=== PATIENT | female | born 1975 | race Caucasian/White ===

== ENCOUNTER 2017-05-12 11:15 | Emergency (ER) | payer MEDICARE, SELFPAY ==
[2017-05-12 12:55] VITALS: BP 159/89; PULSE 102; RESP 20; TEMP 36.6; O2SAT 100; BMI 29.2
--- NOTE | 2017-05-12 13:55 | HMH.EDUTC ---
[facility] [place]errals: Coco Rome PA [Primary Care Provider] - Medical Decision Making Vital Signs: 05/12/17 12:55 Temperature 97.8 F Temperature Source Temporal Artery Scan Pulse Rate [Right Brachial] 102 H Respiratory Rate 20 Blood Pressure [Right Arm] 159/89 Blood Pressure Mean [Right Arm] 112 Blood Pressure Source [Right Arm] Automatic Cuff Blood Pressure Position [Right Arm] Sitting 02 Sat by Pulse Oximetry 100 Oxygen Delivery Method Room Air [facility] [place] - General Stated complaint: leg pain lighheaded Time Seen by Provider: 05/12/17 13:55 Mode of Arrival: Family Vehicle Source of Information: Patient Limitations: No Limitations Description of Symptoms (Recalled from Triage Doc. by RN): PT STATES HER WHOLE RIGHT LEG IS HURTING. PT HAS HX OF STENTS IN HER LEGS. PT DENIES BACK PAIN OR INJURY. HEENT Symptoms (Recalled from RN notes): No Resp Symptoms (Recalled from RN notes): No Skin Symptoms (Recalled from RN notes): No MS Symptoms (Recalled from RN notes): Yes (RIGHT LEG PAIN) Functional Status (Recalled from RN notes): NA - Related Data Home Medications Medication Instructions Recorded Confirmed Aspirin [Aspirin 81mg EC Tab] 81 mg PO DAILY 05/12/17 05/12/17 Gabapentin [Gabapentin 300mg Cap] 600 mg PO DAILY 05/12/17 05/12/17 Omeprazole [Omeprazole 40mg 40 mg PO DAILY 05/12/17 05/12/17 Capsule] PARoxetine HCl [Paxil 20mg Tablet] 20 mg PO DAILY 05/12/17 05/12/17 Prasugrel HCl [Effient 10mg tablet] 10 mg PO DAILY 05/12/17 05/12/17 Pravastatin Sodium [Pravachol 40mg 40 mg PO DAILY 05/12/17 05/12/17 Tablet] Tizanidine HCl [Zanaflex 4mg 4 mg PO DAILY 05/12/17 05/12/17 tablet] dilTIAZem HCl [Diltiazem ER] 240 mg PO DAILY 05/12/17 05/12/17 Allergies Allergy/AdvReac Type Severity Reaction Status Date / Time clopidogrel Allergy Unknown I-ITCHING/ Verified 05/12/17 11:54 RASH - Worker's Comp Is this a Worker's Comp case?: No Is this an [facility] Worker's Comp?: No Is this a [place] Worker's Comp?: No [facility] History - *Social History Smoking Status: Current every day smoker Tobacco Type: cigarettes Alcohol Intake: never - Psychiatric History Expresses thoughts of harming self/others: None Suicide Plan Description: No Plan
--- NOTE | 2017-05-12 14:00 | ED_ITS ---
[facility] [place] Referrals: Coco Rome PA [Primary Care Provider] - Medical Decision Making Vital Signs: 05/12/17 12:55 Temperature 97.8 F Temperature Source Temporal Artery Scan Pulse Rate [Right Brachial] 102 H Respiratory Rate 20 Blood Pressure [Right Arm] 159/89 Blood Pressure Mean [Right Arm] 112 Blood Pressure Source [Right Arm] Automatic Cuff Blood Pressure Position [Right Arm] Sitting 02 Sat by Pulse Oximetry 100 Oxygen Delivery Method Room Air [facility] [place] HPI - General Stated complaint: leg pain lighheaded Time Seen by Provider: 05/12/17 13:55 Mode of Arrival: Family Vehicle Source of Information: Patient Limitations: No Limitations Description of Symptoms (Recalled from Triage Doc. by RN): PT STATES HER WHOLE RIGHT LEG IS HURTING. PT HAS HX OF STENTS IN HER LEGS. PT DENIES BACK PAIN OR INJURY. HEENT Symptoms (Recalled from RN notes): No Resp Symptoms (Recalled from RN notes): No Skin Symptoms (Recalled from RN notes): No MS Symptoms (Recalled from RN notes): Yes (RIGHT LEG PAIN) Functional Status (Recalled from RN notes): NA - Related Data Home Medications Medication Instructions Recorded Confirmed Aspirin [Aspirin 81mg EC Tab] 81 mg PO DAILY 05/12/17 05/12/17 Gabapentin [Gabapentin 300mg Cap] 600 mg PO DAILY 05/12/17 05/12/17 Omeprazole [Omeprazole 40mg 40 mg PO DAILY 05/12/17 05/12/17 Capsule] PARoxetine HCl [Paxil 20mg Tablet] 20 mg PO DAILY 05/12/17 05/12/17 Prasugrel HCl [Effient 10mg tablet] 10 mg PO DAILY 05/12/17 05/12/17 Pravastatin Sodium [Pravachol 40mg 40 mg PO DAILY 05/12/17 05/12/17 Tablet] Tizanidine HCl [Zanaflex 4mg 4 mg PO DAILY 05/12/17 05/12/17 tablet] dilTIAZem HCl [Diltiazem ER] 240 mg PO DAILY 05/12/17 05/12/17 Allergies Allergy/AdvReac Type Severity Reaction Status Date / Time clopidogrel Allergy Unknown I-ITCHING/ Verified 05/12/17 11:54 RASH - Worker's Comp Is this a Worker's Comp case?: No Is this an [facility] Worker's Comp?: No Is this a [place] Worker's Comp?: No [facility] History - *Social History Smoking Status: Current every day smoker Tobacco Type: cigarettes Alcohol Intake: never - Psychiatric History Expresses thoughts of harming self/others: None Suicide Plan Description: No Plan
--- NOTE | 2017-05-12 15:39 | PC.NURSE ---
Pt came in to clinic c/o bilateral chronic leg pain and a syncopal episode 2 months ago. PCP, Coco. Has been off all medications for months and hasn't seen PCP since fall 2016 due to $58 bill in collections. I doubt they will see me . Came to hospital to see Ani, financial counselor, in hopes to qualify for medicaid. Already saw Ani and does qualify for medicaid but will not go into effect until around June. Pt reports since I was already here, I just came in because this is horrible. No acute symptoms. CP intermittently x years, denies CP for months. SOA intermittently, denies SOA x months. Denies LE edema, cold skin, wounds to feet or legs. Hx of femoral artery stenosis. Pain worse since stopping all medications (omeprazole, paxil, asa, effient, pravastatin, gabapenten, diltiziam, xanaflex). Pain described as muscle spasms, worse with walking and worse at night. Improves at night when walking. Was on gabapentin when could afford medication. On exam today, no LE edema. BLE warm, brisk cap refill, no sensory deficit, 1+ gurpreet pedal pulses. Without acute symptoms, it is not clear what the patient expects of a visit today. Called and spoke to PCP, Coco. We rvwd PMHx, current complaints, current exam. Coco reports a hx of chronic leg pain. Rvwd last cardiology report and was good . Coco has no suggestions for today's visits other then patient needs to follow up with primary care. Discussed collections situation. I spoke to Nany in Coco's office. She reports there are plenty of minimal options to get the patient in and seen so to make pt aware to call her. Spoke to LARA Walker about the patient's Hx, complaints today and exam. Without an acute complaint or acute finding, he too doesn't know what we can offer the patient today. Discussed all this with patient. Aware we are more then happy to see her and evaluate her fully but potentially, there is nothing we can do here other then get her back on her medications (which she reports she can't afford until medicaid kicks in next month). She rather go talk to nany and try to get in with PCP due to cost. Pt left without being seen and evaluated fully.
== END 2017-05-12 15:06 | disposition left against medical advice (07) ==
PROVIDERS: Emergency Provider Nurse Practitioner Family; Family Provider Emergency Medicine; PCP Physician Assistant
DX: Z53.29 Procedure and treatment not carried out because of patient's decision for other reasons (principal)
CPT/HCPCS: 99201

== ENCOUNTER → 2017-05-19 11:28 | Outpatient (CLI) | payer MEDICARE, SELFPAY ==
--- NOTE | 2017-05-19 11:43 | MR_ITS ---
MR lumbar spine wo con HISTORY: Low back pain with bilateral leg and hip pain and numbness and tingling with leg cramping ORDERING PHYSICIAN: Kendell Magaña MD PATIENT AGE: 41 years COMPARISON: 11/07/2014 TECHNIQUE: Standard multiplanar multiecho sequences are performed without contrast. 3-D MIP and myelographic images are also rendered and reviewed FINDINGS: There is normal alignment. Spinal cord ends at the L1 level. T11-L5 levels show mild disc desiccation with minimal endplate irregularity without compressive changes with minimal concentric bulging of the disc at L2-L3, L3-L4, L4-5. Facet and ligamentum flavum hypertrophy is present at L3-L4 and L4-L5. There is mild left-sided foraminal narrowing at L4-L5. Minimal bulging disc is present at L5-S1 with minimal central disc protrusion without neural impingement. There is mild facet hypertrophy with mild bilateral foraminal narrowing. IMPRESSION: 1. Mild multilevel lumbar spondylosis as described above with mild degenerative disc disease and minimal bulging disc. Please see above for detailed description. 2. Minimal central disc protrusion at L5-S1 which is developed in the interval.
== END ==
PROVIDERS: PCP Emergency Medicine; Visit Provider Emergency Medicine
DX: R20.0 Anesthesia of skin (principal); R32 Unspecified urinary incontinence
CPT/HCPCS: 72148; 76376

== ENCOUNTER → 2017-07-19 08:54 | Outpatient (CLI) | payer MEDICARE, MEDICAID, SELFPAY ==
--- NOTE | 2017-07-19 08:55 | US_ITS ---
US abd. aorta screening COMPARISON: Lower spine 07/31/2014 HISTORY: History of peripheral vascular disease TECHNIQUE: Ultrasound evaluation of the aorta FINDINGS: The upper abdominal aorta is normal caliber with minimal arterial sclerotic plaque noted. The infrarenal aorta is normal caliber as well. There are bilateral common iliac stents noted. These were seen on the lumbar spine films in July 2014. IMPRESSION: Bilateral aortic bifurcation stents, no evidence of aortic aneurysm
== END ==
PROVIDERS: Family Provider Emergency Medicine; PCP Emergency Medicine; Visit Provider Physician Assistant
DX: Z13.6 Encounter for screening for cardiovascular disorders (principal)
CPT/HCPCS: 76705

== ENCOUNTER → 2017-08-01 09:59 | Outpatient (REF) | payer MEDICARE, MEDICAID, SELFPAY ==
[2017-08-01 13:59] LABS: Basophils # 0.1 K/mm3 (0-0.2); Basophils % 0.8 % (0.1-2.0); Eosinophils # 0.4 K/mm3 (0.0-0.4); Eosinophils % 4.6 % (0.1-12.0); Hematocrit 42.5 % (37.0-47.0); Hemoglobin 12.8 g/dL (12.2-16.2); Lymphocytes # 2.7 K/mm3 (0.7-4.5); Lymphocytes % 29.6 K/mm3 (10-50); Mean Corpuscular HGB Conc 30.2 g/dL (31.8-35.4); Mean Corpuscular Hemoglobin 27.6 pg (27.0-31.2); Mean Corpuscular Volume 91.3 fl (81-99); Mean Platelet Volume 7.7 fl (7.4-10.4); Monocytes # 0.6 K/mm3 (0.1-1.0); Monocytes % 6.3 % (1.7-9.3); Neutrophils # 5.3 K/mm3 (1.8-7.8); Neutrophils % 58.7 % (37.0-80.0); Platelet Count 423 K/mm3 (142-424); Red Blood Count 4.65 M/mm3 (4.20-5.40); Red Cell Distribution Width 15.1 % (11.5-17.5)
[2017-08-01 15:09] LABS: Alanine Aminotransferase 19 U/L (12-78); Albumin Level 3.9 gm/dL (3.4-5.0); Alkaline Phosphatase 149 U/L (46-116); Anion Gap 14.6 mEq/L (5-15); Aspartate Amino Transferase 16 U/L (15-37); Bilirubin,Total 0.2 mg/dL (0.2-1.0); Blood Urea Nitrogen 6 mg/dL (7-18); Calcium 9.6 mg/dL (8.5-10.1); Carbon Dioxide 27 mmol/L (21.0-32.0); Chloride 103 mmol/L (98-107); Chol/HDL Ratio 4.3 (1-3.5); Cholesterol 187 mg/dL (140-200); Creatinine,Serum 0.64 mg/dL (0.55-1.02); Estimated Glomerular Filt Rate 103 ml/min (>60); GFR (African American) 124 ML/MIN (>60); Globulin 3.8 gm/dl (1.3-3.2); Glucose 88 mg/dL (74-106); HDL Cholesterol 44 mg/dL (29-89); LDL Cholesterol 127 mg/dL (0-130); Potassium 4.6 mmoL/L (3.5-5.1); Sodium 140 mmol/L (136-145); T4 (Thyroxine) 8.3 ug/dl (4.7-13.3); Thyroid Stimulating Hormone 1.11 uIU/ml (0.358-3.740); Total Protein,Serum 7.7 gm/dL (6.4-8.2); Triglycerides 81 mg/dL (30-200); VLDL Cholesterol 16 mg/dL (0-40)
[2017-08-03 06:45] LABS: Vitamin D 25 Hydroxy 19.6 ng/mL (30.0-100.0)
== END ==
LOC: LAB 09:59
PROVIDERS: Visit Provider Physician Assistant
DX: G25.81 Restless legs syndrome (principal); F32.9 Major depressive disorder, single episode, unspecified; Z13.6 Encounter for screening for cardiovascular disorders
CPT/HCPCS: 80053; 80061; 82652; 84436; 84443; 85025

== ENCOUNTER → 2017-11-08 08:48 | Outpatient (CLI) | payer MEDICARE, MEDICAID, SELFPAY ==
--- NOTE | 2017-11-08 08:50 | MM_ITS ---
MM Dig screening mamm BI w/CAD CAD Screening COMPARISON: None, this is baseline INDICATION: There is no personal or family history of breast cancer TECHNIQUE: Standard CC and MLO images were obtained. R2 CAD reviewed. FINDINGS: Moderate diffuse fibroglandular densities are seen in both breast slightly more prominent upper outer quadrant right breast than left. There are couple benign-appearing calcifications in each breast. There is no suspicious lesion in either breast and there are no suspicious microcalcifications. IMPRESSION: Moderate diffuse breast density with no suspicious lesion seen BI-RADS Category: 2 Benign Finding(s) RECOMMENDED FOLLOW-UP: 1YR - 1 YEAR FOLLOW-UP (A letter has been sent to the patient regarding results of the study.)
== END ==
PROVIDERS: Family Provider Emergency Medicine; PCP Emergency Medicine; Visit Provider Physician Assistant
DX: Z12.31 Encounter for screening mammogram for malignant neoplasm of breast (principal)
CPT/HCPCS: 77067

== ENCOUNTER → 2018-02-14 18:09 | Outpatient (CLI) | payer MEDICARE, MEDICAID, SELFPAY ==
[2018-02-14 19:03] LABS: Amphetamine/Metha Screen,Urine Negative ng/mL (<1000); Barbiturates Screen,Urine Negative ng/mL (<200); Benzodiazepines Screen,Urine Negative ng/mL (<200); Cannabinoid Screen,Urine Positive ng/mL (<50); Cocaine Screen,Urine Negative ng/mL (<300); Methadone Screen,Urine Negative ng/mL (<300); Opiate Screen,Urine Positive ng/mL (<300); Phencyclidine Screen,Urine Negative ng/mL (<25)
== END ==
PROVIDERS: Visit Provider Physician Assistant
DX: M47.816 Spondylosis without myelopathy or radiculopathy, lumbar region (principal)
CPT/HCPCS: 80305

== ENCOUNTER → 2018-03-07 20:45 | Outpatient (CLI) | payer MEDICARE, MEDICAID, SELFPAY ==
[2018-03-07 21:55] LABS: Anion Gap 16.9 mEq/L (5-15); Blood Urea Nitrogen 11 mg/dL (7-18); Calcium 9.1 mg/dL (8.5-10.1); Carbon Dioxide 26 mmol/L (21.0-32.0); Chloride 101 mmol/L (98-107); Creatinine,Serum 0.59 mg/dL (0.55-1.02); Estimated Glomerular Filt Rate 113 ml/min (>60); GFR (African American) 137 ML/MIN (>60); Glucose 76 mg/dL (74-106); Magnesium 1.7 mg/dL (1.4-2.2); Potassium 3.9 mmoL/L (3.5-5.1); Sodium 140 mmol/L (136-145)
== END ==
PROVIDERS: Visit Provider Physician Assistant
DX: F32.9 Major depressive disorder, single episode, unspecified (principal)
CPT/HCPCS: 80048; 83735

== ENCOUNTER → 2018-03-21 10:17 | Outpatient (CLI) | payer MEDICARE, MEDICAID, SELFPAY ==
--- NOTE | 2018-03-21 10:21 | CT_ITS ---
CT angio LE BI INDICATION: Bilateral leg pain with coldness in toes and upper legs with bilateral aortic bifurcation stents ITS.REASON: Femoral artery stenosis, B leg pain, diminished pu ORDERING PHYSICIAN: WHITNEY Story PATIENT AGE: 42 years COMPARISON: None TECHNIQUE: Axial images are obtained following the intravenous administration 120 mL of Isovue-370 contrast. Sagittal and coronal reformatted images are reviewed as well. All CT scans at the facility use one or more dose reduction, viz: automated exposure control, ma/kV adjustment per patient size (including targeted exams where dose is matched to indication, i.e. head), or iterative reconstruction technique. FINDINGS: Angiographic findings: Superior mesenteric and celiac arteries have an unremarkable appearance. Atheromatous changes involve the abdominal aorta beginning at the level of the renal arteries. There is occlusion of the abdominal aorta 5.3 cm below the level of the renal arteries.. The bilateral iliac artery stents are occluded. There is reconstitution of the distal aspect of the left common iliac artery. There is reconstitution of the proximal aspect of the right external iliac artery. Collateral vessels are present within the mesentery is an apparent lumbar region. The inferior epigastric arteries provide collateral blood flow to the lower extremities. The right superficial femoral artery has an unremarkable appearance as does the right popliteal artery. Trifurcation vessels are patent and there is 3 vessel runoff to the ankle on the right. The left common femoral and superficial femoral artery and popliteal artery are unremarkable with patent trifurcation vessels with three-vessel runoff to the left ankle. Nonangiographic findings: Prior cholecystectomy. The spleen, liver, adrenal glands, and pancreas have an unremarkable appearance. The kidneys have an unremarkable appearance as well. No intestinal obstruction or free air. No pelvic or abdominal mass or abnormal fluid collection. No acute bony anomalies. IMPRESSION: 1. Occlusion of the lower aspect of the abdominal aorta with occluded bilateral proximal common iliac stents. Moderate atheromatous changes involving the aorta below the level of the renal arteries with up to 50% stenosis. 2. Reconstitution of the external iliacs and common femorals with no significant stenosis within the bilateral lower extremities and runoff vessels.
== END ==
PROVIDERS: PCP Physician Assistant; Visit Provider Physician Assistant
DX: I70.213 Atherosclerosis of native arteries of extremities with intermittent claudication, bilateral legs (principal)
CPT/HCPCS: 73701; Q9967

== ENCOUNTER → 2018-05-22 13:53 | Outpatient (CLI) | payer MEDICARE, MEDICAID, SELFPAY ==
[2018-05-22 15:34] LABS: Amphetamine/Metha Screen,Urine Negative ng/mL (<1000); Barbiturates Screen,Urine Negative ng/mL (<200); Benzodiazepines Screen,Urine Negative ng/mL (<200); Cannabinoid Screen,Urine Positive ng/mL (<50); Cocaine Screen,Urine Negative ng/mL (<300); Methadone Screen,Urine Negative ng/mL (<300); Opiate Screen,Urine Positive ng/mL (<300); Phencyclidine Screen,Urine Negative ng/mL (<25)
== END ==
PROVIDERS: Visit Provider Physician Assistant
DX: M47.816 Spondylosis without myelopathy or radiculopathy, lumbar region (principal)
CPT/HCPCS: 80305

== ENCOUNTER → 2018-07-26 14:04 | Outpatient (CLI) | payer MEDICARE, MEDICAID, SELFPAY ==
[2018-07-26 14:56] LABS: Amphetamine/Metha Screen,Urine Negative ng/mL (<1000); Barbiturates Screen,Urine Negative ng/mL (<200); Benzodiazepines Screen,Urine Negative ng/mL (<200); Cannabinoid Screen,Urine Positive ng/mL (<50); Cocaine Screen,Urine Negative ng/mL (<300); Methadone Screen,Urine Negative ng/mL (<300); Opiate Screen,Urine Positive ng/mL (<300); Phencyclidine Screen,Urine Negative ng/mL (<25)
== END ==
PROVIDERS: Visit Provider Physician Assistant
DX: M47.816 Spondylosis without myelopathy or radiculopathy, lumbar region (principal)
CPT/HCPCS: 80305

== ENCOUNTER → 2018-10-13 15:10 | Outpatient (CLI) | payer MEDICARE, MEDICAID, SELFPAY ==
--- NOTE | 2018-10-13 15:13 | CA_ITS ---
PROCEDURE: 2-D M-mode and color Doppler study INDICATIONS FOR THE TEST: Chest pain COPD Heart Murmur Tobacco SmokingX Palpitations Fatigue Syncope EdemaX HypertensionXDiabetes MellitusX Rheumatic Fever SOBXDOE Obesity HyperlipidemiaX Family History HD Additional History X PATIENT INFORMATION HEIGHT: 62 WEIGHT:162 GENDER: Female B/P:132/82 2-D/M-MODE INTERPRETATION: 2-D MEASUREMENTS OBSERVED VALUES IN CMS Right Ventricular Dimension (RVDd) 2.0 Interventricular Septum (Thickness)(IVsd) .8 Left Ventricular Internal Dimensions(LVIDd) 4.7 Left Ventricular Posterior Wall (Thickness)(LVPWd) .9 Aortic Root 2.9 Aortic Cusp Separation 1.8 Left Atrial Dimensions (LAD) 3.1 2D 1. Left atrium is qualitatively mildly enlarged, left ventricle is normal size, mild concentric left ventricular hypertrophy, visually estimated ejection fraction 55% with no regional wall motion abnormality. 2. The right atrium is mildly enlarged, right ventricle is normal size and contractility. 3. The aortic valve is minimally thickened and fibrosed. 4. The mitral and tricuspid valvular grossly normal. 5. The pulmonic valve is poorly visualized. 6. No significant pericardial effusion noted. DOPPLER INTERROGATION: Doppler interrogation of the aortic, mitral and tricuspid valvular presence of mild mitral and tricuspid regurgitation, tricuspid regurgitation jet velocity is inadequate for calculation of the right ventricular systolic pressure, diastolic parameters are inconclusive. CONCLUSION: 1. Mild biatrial enlargement, normal left ventricular size, mild concentric left ventricular hypertrophy, visually estimated ejection fraction 55% with no regional wall motion abnormality, diastolic parameters are inconclusive. 2. Mild mitral and tricuspid regurgitation 3. No significant pericardial effusion noted.
--- NOTE | 2018-10-13 15:40 | XR_ITS ---
XR chest 2V HISTORY: ITS.REASON: Dyspnea, edema ORDERING PHYSICIAN: WHITNEY Larios PATIENT AGE: 43 years COMPARISON: 04/30/2013. FINDINGS: The cardiomediastinal silhouette and pulmonary vascularity are within normal limits. The lungs are clear without infiltrates, suspicious nodules, or pleural effusions. No acute bony abnormalities. IMPRESSION: Negative chest, no acute finding
== END ==
PROVIDERS: PCP Physician Assistant; Visit Provider Physician Assistant
DX: R06.00 Dyspnea, unspecified (principal); R60.0 Localized edema
CPT/HCPCS: 71046; 93306

== ENCOUNTER → 2018-11-29 13:57 | Outpatient (CLI) | payer MEDICARE, MEDICAID, SELFPAY ==
[2018-11-29 15:31] LABS: Amphetamine/Metha Screen,Urine Negative ng/mL (<1000); Barbiturates Screen,Urine Negative ng/mL (<200); Benzodiazepines Screen,Urine Negative ng/mL (<200); Cannabinoid Screen,Urine Positive ng/mL (<50); Cocaine Screen,Urine Negative ng/mL (<300); Methadone Screen,Urine Negative ng/mL (<300); Opiate Screen,Urine Positive ng/mL (<300); Phencyclidine Screen,Urine Negative ng/mL (<25)
== END ==
PROVIDERS: Visit Provider Physician Assistant
DX: M47.816 Spondylosis without myelopathy or radiculopathy, lumbar region (principal)
CPT/HCPCS: 80305

== ENCOUNTER → 2021-08-05 09:35 | Outpatient (CLI) | payer MEDICARE, MEDICAID, SELFPAY ==
[2021-08-05 18:28] LABS: Basophils # 0.1 K/mm3 (0-0.2); Basophils % 0.8 % (0.1-2.0); Eosinophils # 0.3 K/mm3 (0.0-0.4); Eosinophils % 4.1 % (0.1-12.0); Hematocrit 36.9 % (37.0-47.0); Hemoglobin 11.4 g/dL (12.2-16.2); Lymphocytes # 2.5 K/mm3 (0.7-4.5); Lymphocytes % 31.7 % (10-50); Mean Corpuscular HGB Conc 30.9 g/dL (31.8-35.4); Mean Corpuscular Hemoglobin 27.7 pg (27.0-31.2); Mean Corpuscular Volume 89.7 fl (81-99); Mean Platelet Volume 8.8 fl (7.4-10.4); Monocytes # 0.4 K/mm3 (0.1-1.0); Monocytes % 5.6 % (1.7-9.3); Neutrophils # 4.5 K/mm3 (1.8-7.8); Neutrophils % 57.8 % (37.0-80.0); Platelet Count 390 K/mm3 (142-424); Red Blood Count 4.12 M/mm3 (4.20-5.40); Red Cell Distribution Width 18.2 % (11.5-17.5); White Blood Count 7.8 K/mm3 (4.8-10.8)
[2021-08-05 19:10] LABS: Alanine Aminotransferase 14 U/L (12-78); Albumin Level 4.1 g/dl (3.5-5.0); Albumin/Globulin Ratio 1.4 (1.1-1.8); Alkaline Phosphatase 105 U/L (38-126); Anion Gap 9.1 mEq/L (5-15); Aspartate Amino Transferase 21 U/L (14-36); Bilirubin,Total 0.3 mg/dl (0.2-1.3); Blood Urea Nitrogen 7 mg/dl (7-17); Carbon Dioxide 29 mmol/L (22.0-30.0); Chloride 104 mmol/L (98-107); Chol/HDL Ratio 5.6 (1-3.5); Cholesterol 223 mg/dl (140-200); Estimated Glomerular Filt Rate 134 ml/min (>60); GFR (African American) 162 ML/MIN (>60); Glucose 86 mg/dl (74-100); HDL Cholesterol 40 mg/dl (40-60); Potassium 4.1 mmoL/L (3.5-5.1); Sodium 138 mmol/L (136-145); Total Protein,Serum 7.1 g/dl (6.3-8.2); Triglycerides 117 mg/dl (30-150); VLDL Cholesterol 23 mg/dL (0-40)
[2021-08-05 19:21] LABS: Direct LDL Cholesterol 147.43 mg/dL (100-129)
[2021-08-05 19:27] LABS: 25-OH Vitamin D, Total 17.3 ng/mL (30-100)
[2021-08-05 19:41] LABS: Thyroid Stimulating Hormone 0.86 uIU/mL (0.465-4.68)
[2021-08-05 20:00] LABS: Vitamin B12 564 pg/mL (239-931)
== END ==
PROVIDERS: Visit Provider Physician Assistant
DX: I70.203 Unspecified atherosclerosis of native arteries of extremities, bilateral legs (principal); R53.83 Other fatigue; Z72.0 Tobacco use; R52 Pain, unspecified; E55.9 Vitamin D deficiency, unspecified
CPT/HCPCS: 80053; 80061; 82306; 82607; 84443; 85025

== ENCOUNTER → 2022-03-08 09:31 | Outpatient (CLI) | payer MEDICARE, MEDICAID, SELFPAY ==
[2022-03-08 20:15] LABS: Amphetamine/Metha Screen,Urine Negative ng/ml (<1000); Barbiturates Screen,Urine Negative ng/ml (<200)
[2022-03-08 20:16] LABS: Benzodiazepines Screen,Urine Negative ng/ml (<200)
[2022-03-08 20:17] LABS: Cannabinoid Screen,Urine Positive ng/ml (<50); Cocaine Screen,Urine Negative ng/ml (<300)
[2022-03-08 20:18] LABS: Methadone Screen,Urine Negative ng/ml (<300); Opiate Screen,Urine Positive ng/ml (<300)
[2022-03-08 20:19] LABS: Phencyclidine Screen,Urine Negative ng/ml (<25)
== END ==
PROVIDERS: PCP Physician Assistant; Visit Provider Physician Assistant
DX: M47.816 Spondylosis without myelopathy or radiculopathy, lumbar region (principal)
CPT/HCPCS: 80305

== ENCOUNTER 2022-03-09 17:00 | Outpatient (RCR) | payer MEDICARE, MEDICAID, SELFPAY ==
--- NOTE | 2022-03-03 13:42 | HMH.PTOPEV ---
PT Outpatient Evaluation Rehab PT Outpatient Evaluation Start: 03/03/22 12:57 Freq: Status: Active Protocol: Document 03/03/22 12:58 KRISTY (Rec: 03/03/22 13:41 KRISTY [id number]) E-signed By Alberta Olmedo, PT Outpatient Therapy Subjective History Subjective History Pt is a 46 y/o female that reports insidious onset of chronic low back pain ~3 years ago. Pt reports she has not had imaging and has to do PT to get an MRI approved. Pt reports pain is a dull,ache across the wist line that is worse with prolonged sitting > 30 minutes, bending and housework. Pt denies pain with walking or standing. Pt denies paresthesia, b/b dysfunction or falls. Pt reports she has 7 stents placed with last once placed for her aorta on 01/14/22 at [facility]. She reports she was having leg pain and had stents placed in both femoral arteries with improved leg pain. Pt reports she is taking hydrocodone as needed for back pain which does help. Medical History: High blood pressure, COPD Chief Complaint Pain Symptom Type Ache,Dull Symptoms Relieved By Prescription Meds Symptoms Aggravated By Sitting,Bending/Stooping, Physical Activity Prior Functional Limitations None Current Functional Limitations Lifting,Housework,Sleeping, Sitting,Squatting,Bending/ Stooping Symptom Description Constant but Variable Level of pain today (0-10) 5 Pain scale - at its best (0-10) 1 Pain scale - at its worst (0-10) 10 Lumbopelvic Eval Palapation tenderness bilateral lumbar spinal tenderness Yes paraspinal tenderness Yes: lumbar B buttock tenderness Yes: piriformis & greater trochanter B Lumbar/Sacral Palpation Findings Tenderness Accessory Movement L-spine Vertebrae Accessory Movements Central P/A [place] that Elicit Symptoms L4 bilateral L5 bilateral S1 bilateral Ra
== END 2022-03-09 17:05 | disposition home or self-care (01) ==
LOC: PT 17:00
PROVIDERS: PCP Physician Assistant; Visit Provider Physician Assistant
DX: M47.816 Spondylosis without myelopathy or radiculopathy, lumbar region (principal)
CPT/HCPCS: 97163

== ENCOUNTER → 2022-05-03 13:45 | Outpatient (CLI) | payer MEDICARE, MEDICAID, SELFPAY ==
[2022-05-03 16:36] LABS: Amphetamine/Metha Screen,Urine Negative ng/ml (<1000); Barbiturates Screen,Urine Negative ng/ml (<200)
[2022-05-03 16:37] LABS: Benzodiazepines Screen,Urine Negative ng/ml (<200)
[2022-05-03 16:38] LABS: Cannabinoid Screen,Urine Positive ng/ml (<50); Cocaine Screen,Urine Negative ng/ml (<300)
[2022-05-03 16:39] LABS: Methadone Screen,Urine Negative ng/ml (<300); Opiate Screen,Urine Positive ng/ml (<300)
[2022-05-03 16:41] LABS: Phencyclidine Screen,Urine Negative ng/ml (<25)
== END ==
PROVIDERS: PCP Physician Assistant; Visit Provider Physician Assistant
DX: M47.816 Spondylosis without myelopathy or radiculopathy, lumbar region (principal)
CPT/HCPCS: 80305

== ENCOUNTER → 2022-05-26 11:34 | Outpatient (CLI) | payer MEDICARE, MEDICAID, SELFPAY | PROVIDERS: PCP Physician Assistant; Visit Provider Physician Assistant | DX: G47.33 Obstructive sleep apnea (adult) (pediatric) (principal); G47.00 Insomnia, unspecified; R06.83 Snoring | CPT/HCPCS: G0399 ==

== ENCOUNTER → 2022-06-24 10:54 | Outpatient (CLI) | payer MEDICARE, MEDICAID, SELFPAY ==
--- NOTE | 2022-06-24 10:55 | CT_ITS ---
FINAL REPORT TECHNIQUE: Thin section axial CT images with coronal and sagittal reformats were performed through the neck. This study was performed with techniques to keep radiation doses as low as reasonably achievable (ALARA). Individualized dose reduction techniques using automated exposure control or adjustment of mA and/or kV according to the patient''s size were employed. CLINICAL HISTORY: lymphadenopathy. Swollen bilat lymph nodes x 2 mos, c/o chronic cough. Nonsmoker. FINDINGS: There are multiple, borderline sized bilateral neck lymph nodes as well as mediastinal lymph nodes which are nonspecific. Findings may be reactive or neoplastic. No dominant mass is seen. Salivary glands are normal. Larynx is unremarkable. Thyroid gland is unremarkable. There is no abnormal fluid collection. There are bilateral, pulmonary ground-glass opacities which may represent edema or alveolitis. IMPRESSION: Borderline size mediastinal and neck lymph nodes which may be reactive or neoplastic. Recommend follow-up CT or PET-CT. Bilateral pulmonary ground-glass opacities which may represent edema or alveolitis. Reviewed, Interpreted and Dictated by Carroll Lima III, MD Transcribed by Cora Stauffer Authenticated and [facility]
== END ==
PROVIDERS: PCP Physician Assistant; Visit Provider Physician Assistant
DX: R59.1 Generalized enlarged lymph nodes (principal)
CPT/HCPCS: 70490

== ENCOUNTER 2022-08-02 11:00 | Outpatient (RCR) | payer MEDICARE, MEDICAID, SELFPAY ==
--- NOTE | 2022-06-24 14:40 | HMH.PTOPEV ---
PT Outpatient Evaluation Rehab PT Outpatient Evaluation Start: 06/24/22 14:00 Freq: Status: Active Protocol: Document 06/24/22 14:00 KRISTY (Rec: 06/24/22 14:40 KRISTY [id number]) E-signed By Alberta Olmedo, PT Outpatient Therapy Subjective History Subjective History Pt is a 47 y/o female that reports chronic low back pain for 4-5 years with insidious onset. Pt reports pain is a dull,ache in the center of her back that radiates to both hips. Pt reports pain is worse with prolonged sitting >30 minutes, bending and housework such as sweeping. Pt denies pain with walking or standing. Pt denies paresthesia, b/b dysfunction or falls. Pt attended PT evaluation with this PT 3 months ago although did not followup for treatment . Pt reports she has been performing standing lumbar extensions given as HEP intermittently which help some with pain. Pt reports she takes hydrocodone 3x/day which helps with pain. Pt reports she has 7 stents placed and the last one was placed for her aorta on 01/14/22 at [place]. She reports she was having leg pain and had stents placed in both femoral arteries with improved leg pain. Medical History: High blood pressure, COPD Chief Complaint Pain Symptom Type Ache,Dull Symptoms Relieved By Prescription Meds Symptoms Aggravated By Sitting,Bending/Stooping, Physical Activity Prior Functional Limitations None Current Functional Limitations Lifting,Housework,Sitting, Squatting,Bending/Stooping Symptom Description Constant but Variable Level of pain today (0-10) 2 Pain scale - at its best (0-10) 1 Pain scale - at its worst (0-10) 10 Lumbopelvic Eval Palapation tenderness bilateral lumbar spinal tenderness Yes paraspinal tenderness Yes buttock tenderness Yes: piriformi
--- NOTE | 2022-07-22 15:25 | HMH.RHREAS ---
Rehab Reassessment Rehab OP Re-assessment Start: 07/22/22 13:57 Freq: Status: Active Protocol: Document 07/22/22 14:02 KRISTY (Rec: 07/22/22 15:25 KRISTY [id number]) E-signed By Alberta Olmedo PT Rehab Re-assessment Subjective Subjective Pt reports overall her back feels about the same since starting PT. Pt reports she missed a couple weeks of PT due to fluid build up on her LE that caused her to feel bad , states she finished Lasix 2- 3 days ago and is feeling better now. Pt reports she performs her HEP including standing lumbar extension and piriformis stretch when she experiences pain which help. Pt reports pain at worst as 10 /10 while cleaning the house and mopping. Pt reports LBP on average as 3-4/10. Pt reports she still has pain with household activities and layng on the right side. Pt reports she return to her MD on . Objective Objective Notes Lumbar AROM: 90 flex, 25 ext, LF 20 LE MMT: 4/5 gross hip strength Assessment Progress Assessment Progressing as Expected Assessment Notes Pt has attended 4 PT visits consisting of aerobic exercise , LE stretching/strengthening, core strengthening, manual therapy and modalities with good tolerance. Pt demonstrated improved lumbar AROM and LE MMT this date compared to initial evaluation . Pt continues to report 10/10 subjective report of pain at worst and difficulty with household care such as sweeping/mopping. Pt will continue to benefit from skileld PT to further improve pain, LE/core MMT, and functional activity tolerance to improve overall QOL. Patient goals met ST/5 G
== END 2022-08-02 11:05 | disposition home or self-care (01) ==
LOC: PT 11:00
PROVIDERS: PCP Physician Assistant; Visit Provider Physician Assistant
DX: M54.50 Low back pain, unspecified (principal)
CPT/HCPCS: 97010; 97014; 97035; 97110; 97140; 97163; 97164; 97530; G0283

== ENCOUNTER → 2022-08-05 11:19 | Outpatient (CLI) | payer MEDICARE, MEDICAID, SELFPAY ==
[2022-08-05 12:52] LABS: Ferritin 9.31 ng/ml (6.24-137)
== END ==
PROVIDERS: PCP Physician Assistant; Visit Provider Specialist
DX: E83.10 Disorder of iron metabolism, unspecified (principal)
CPT/HCPCS: 36415; 82728

== ENCOUNTER → 2022-08-25 08:47 | Outpatient (CLI) | payer MEDICARE, MEDICAID, SELFPAY | PROVIDERS: PCP Physician Assistant; Visit Provider Physician Assistant | DX: R06.00 Dyspnea, unspecified (principal) | CPT/HCPCS: 93306 ==

== ENCOUNTER → 2022-09-27 13:38 | Outpatient (CLI) | payer MEDICARE, MEDICAID, SELFPAY ==
[2022-09-27 12:02] LABS: Basophils % 0.4 % (0.1-2.0); Eosinophils # 0.2 K/mm3 (0.0-0.4); Eosinophils % 2.7 % (0.1-12.0); Hematocrit 38.2 % (37.0-47.0); Hemoglobin 11.7 g/dL (12.2-16.2); Lymphocytes % 22.8 % (10-50); Mean Corpuscular HGB Conc 30.6 g/dL (31.8-35.4); Mean Corpuscular Hemoglobin 25.9 pg (27.0-31.2); Mean Corpuscular Volume 84.8 fl (81-99); Mean Platelet Volume 8.1 fl (7.4-10.4); Monocytes # 0.4 K/mm3 (0.1-1.0); Monocytes % 4.1 % (1.7-9.3); Neutrophils % 69.9 % (37.0-80.0); Platelet Count 377 K/mm3 (142-424); Red Blood Count 4.51 M/mm3 (4.20-5.40); Red Cell Distribution Width 16.9 % (11.5-17.5); White Blood Count 8.5 K/mm3 (4.8-10.8)
[2022-09-27 12:16] LABS: Alanine Aminotransferase 25 U/L (12-78); Albumin Level 4.3 g/dl (3.5-5.0); Albumin/Globulin Ratio 1.4 (1.1-1.8); Alkaline Phosphatase 151 U/L (38-126); Anion Gap 15.1 mEq/L (5-15); Aspartate Amino Transferase 29 U/L (14-36); Bilirubin,Total 0.3 mg/dl (0.2-1.3); Blood Urea Nitrogen 5 mg/dl (7-17); Calcium 8.9 mg/dl (8.4-10.2); Carbon Dioxide 28 mmol/L (22.0-30.0); Chloride 103 mmol/L (98-107); Cholesterol 150 mg/dl (140-200); Estimated Glomerular Filt Rate 108 ml/min (>60); GFR (African American) 131 ML/MIN (>60); Glucose 114 mg/dl (74-100); HDL Cholesterol 50 mg/dl (40-60); Potassium 4.1 mmoL/L (3.5-5.1); Sodium 142 mmol/L (136-145); Total Protein,Serum 7.3 g/dl (6.3-8.2); Triglycerides 102 mg/dl (30-150); VLDL Cholesterol 20 mg/dL (0-40)
[2022-09-27 12:27] LABS: Direct LDL Cholesterol 85.78 mg/dL (100-129)
[2022-09-27 12:47] LABS: Thyroid Stimulating Hormone 0.67 uIU/mL (0.465-4.68)
[2022-09-27 13:06] LABS: Vitamin B12 572 pg/mL (239-931)
[2022-09-29 14:26] LABS: Hemoglobin A1C 5.8 % (4.0-6.0)
[2022-09-29 14:32] LABS: Intact Parathyroid Hormone 35.8 pg/mL (7.5-53.5)
== END ==
PROVIDERS: PCP Physician Assistant; Visit Provider Physician Assistant
DX: E78.5 Hyperlipidemia, unspecified (principal); G47.00 Insomnia, unspecified; Z00.00 Encounter for general adult medical examination without abnormal findings; I70.203 Unspecified atherosclerosis of native arteries of extremities, bilateral legs; Z68.33 Body mass index [BMI] 33.0-33.9, adult; E83.10 Disorder of iron metabolism, unspecified; E66.9 Obesity, unspecified
CPT/HCPCS: 80053; 80061; 82306; 82607; 83036; 83970; 84443; 85025

== ENCOUNTER → 2022-10-14 06:58 | Outpatient (CLI) | payer MEDICARE, MEDICAID, SELFPAY | PROVIDERS: PCP Physician Assistant; Visit Provider Physician Assistant | DX: R59.0 Localized enlarged lymph nodes (principal) ==

== ENCOUNTER → 2022-10-25 07:00 | Outpatient (CLI) | payer MEDICARE, MEDICAID, SELFPAY ==
--- NOTE | 2022-10-25 07:01 | CT_ITS ---
FINAL REPORT TECHNIQUE: Thin section axial CT images with coronal and sagittal reformats were performed through the neck. This study was performed with techniques to keep radiation doses as low as reasonably achievable (ALARA). Individualized dose reduction techniques using automated exposure control or adjustment of mA and/or kV according to the patient''s size were employed. CLINICAL HISTORY: abnormal CT 06/2022, swelling in neck. no palpable mass COMPARISON: 06/24/2022 FINDINGS: There are multiple small and borderline sized bilateral neck lymph nodes which are nonspecific, favor reactive. Multiple mildly enlarged mediastinal lymph nodes are also stable. There are persistent, mild pulmonary groundglass opacities and mild peripheral interstitial thickening worrisome for interstitial lung disease, unchanged IMPRESSION: Stable borderline and mildly enlarged mediastinal and neck lymph nodes which are nonspecific, favor reactive. Stable pulmonary groundglass opacities and mild peripheral interstitial thickening worrisome for interstitial lung disease. Reviewed, Interpreted and Dictated by Carroll Lima III, MD Transcribed by Cora Stauffer Authenticated and . [facility]
== END ==
PROVIDERS: PCP Physician Assistant; Visit Provider Physician Assistant
DX: R93.0 Abnormal findings on diagnostic imaging of skull and head, not elsewhere classified (principal)
CPT/HCPCS: 70490

== ENCOUNTER 2022-12-03 16:00 | Outpatient (RCR) | payer MEDICARE, MEDICAID, SELFPAY ==
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
== END 2022-12-03 16:05 | disposition home or self-care (01) ==
LOC: PT 16:00
PROVIDERS: PCP Physician Assistant; Visit Provider Physician Assistant
DX: M54.50 Low back pain, unspecified (principal)
CPT/HCPCS: 97163

== ENCOUNTER → 2022-12-14 09:46 | Outpatient (CLI) | payer MEDICARE, MEDICAID, SELFPAY ==
--- NOTE | 2022-12-14 09:46 | CT_ITS ---
FINAL REPORT TECHNIQUE: Thin section axial CT images were obtained utilizing a CT angiogram protocol. Coronal and sagittal reformatted images were submitted. This study was performed with techniques to keep radiation doses as low as reasonably achievable (ALARA). Individualized dose reduction techniques using automated exposure control or adjustment of mA and/or kV according to the patient's size were employed. CLINICAL HISTORY: bilateral iliac artery stenosis FINDINGS: CTA lower extremities The visualized liver and spleen are unremarkable. The gallbladder is absent. The pancreas, kidneys and adrenal glands are unremarkable. There are bilateral common iliac stents extending into the abdominal aorta that are patent. Of note are occluded stents in the proximal common iliac arteries bilaterally adjacent to the patent stents. There is a small amount of mural thrombus eccentric to the right and that abdominal aorta immediately proximal to the aorta portion of the stent seen on image 7 of series 3. The common femoral, superficial femoral, popliteal and three-vessel runoff's are patent bilaterally. IMPRESSION: Bilateral common iliac artery stents extending into the abdominal aorta appear patent and continuous. Occluded and excluded common iliac artery stents as described. Reviewed, Interpreted and Dictated by José Manuel Hobbs MD Transcribed by Sawyer Lucio Authenticated and [facility]
[2022-12-14 10:31] LABS: Blood Urea Nitrogen 5 mg/dl (7-17); Estimated Glomerular Filt Rate 108 ml/min (>60); GFR (African American) 131 ML/MIN (>60)
== END ==
PROVIDERS: PCP Physician Assistant; Visit Provider Physician Assistant
DX: I70.203 Unspecified atherosclerosis of native arteries of extremities, bilateral legs (principal); I70.8 Atherosclerosis of other arteries
CPT/HCPCS: 36415; 73701; 82565; 84520; Q9967

== ENCOUNTER → 2023-02-28 10:58 | Outpatient (POV) | payer MEDICARE, MEDICAID, SELFPAY ==
--- NOTE | 2023-02-28 12:13 | EXP.PAIN.OV ---
HPI Data of Consult Patient: new to practice Consult date: 02/28/23 Requesting Physician: Alberta Navarrete APRN Primary Care Provider: WHITNEY Larios Consult Narrative Reason for consult: Hip pain, bilateral leg pain History of present illness: Ms. Bill is a 47 year old female who presents today as a new patient. She is a referral from Coco Rome's office. Today she rates her pain at a 6 out of 10. Patient states her pain is all in her hips with radiating symptoms down her entire lower extremities. Patient does state this is been going on since 2013 and denies any specific trauma or injury that initially led to her symptoms. Patient does have significant peripheral artery disease and has had multiple stents in her legs and pelvis in the past. Patient does currently have a blockage in her common iliac artery that is worsening her pain. Patient sees a provider in [facility] Dr. Mcmullen who does state that her vascular veins did not mature like they should have. He does state that he cannot do surgery or stent the current blockage which is causing worsening leg pain. Patient is currently on blood thinners for this. Patient does describe her pain as charley horses with ambulation and overall a dull achy sensation such as a toothache. Patient has had physical therapy in the past with no additional relief but made her symptoms worse. Patient does continue to do at home exercising and stretching for longer than 12 weeks with no improvement. Patient has tried Tylenol, heat and ice and topicals with no additional relief. She is interested in any help we may be able to provide. Her Leroy has been reviewed and is appropriate. Patient is currently managed with Percocet 7.5 mg 3 times a day and gabapentin 600 mg 4 times a day from Dr. Magaña's office. She denies any side effects from this medication. CC: Alberta Navarrete APRN [facility] Disclaimer: The information contained in this section may have been updated after the patient was seen, as this information can be updated by other users. Medical History (Updated 02/28/23 @ 12:18 by Alberta Navarrete APRN) Bilateral leg cramps Depression Dystrophic nail GERD (gastroesophageal reflux disease) Insomnia Interstitial lung disease Leg pain Leg pain, bilateral Lumbar spondylolysis Lumbar spondylosis Lumbar spondylosis LAKESHA (obstructive sleep apnea) Restless leg syndrome Restless leg syndrome RLS (restless legs syndrome) Saddle anesthesia Tobacco abuse Surgical History History of 2 sections History of cholecystectomy History of right coronary artery stent placement Social History Smoking Status: Former smoker tobacco type: cigarettes packs per day: 1 alcohol intake: never substance use type: denies use current occupational status: unemployed Travel in the last 8 weeks: None household members: spouse housing: house Review of Systems Review of Systems Review of systems:: pertinent systems reviewed and negative unless documented below Review of systems (narrative): Review of Systems: General: No recent weight changes, no fever, no sleep disturbances Respiratory: No cough, no shortness of air, no recurring pulmonary infections Cardiovascular/peripheral vascular: No chest pain, no palpitations, no edema, no shortness of breath Gastrointestinal: No new onset incontinence, normal bowel movements reported Genitourinary: No new onset incontinence Musculoskeletal: Bilateral hip pain, bilateral leg pain Psychiatric: [Normal mood/affect] Neurological: [Denies weakness in extremities], [denies balance issues] Meds Home Medications and Allergies Home Medications Medication Instructions Recorded Confirmed Type fluticasone furoate 200 See Rx Instructions .Route 11/05/21 01/31/23 Rx mcg-vilanterol 25 mcg/dose .COMPLEX #60 ea inhalation powder (Breo E
[2023-02-28 12:37] VITALS: BP 158/89; PULSE 92; RESP 18; O2SAT 97; BMI 28.9
== END ==
PROVIDERS: PCP Physician Assistant; Visit Provider Nurse Practitioner Family
DX: M25.551 Pain in right hip (principal); M25.552 Pain in left hip; G89.4 Chronic pain syndrome; M54.16 Radiculopathy, lumbar region
CPT/HCPCS: 99202; G0463

== ENCOUNTER → 2023-03-21 23:35 | Outpatient (CLI) | payer MEDICARE, MEDICAID, SELFPAY ==
[2023-03-21 19:07] LABS: Amphetamine/Metha Screen,Urine Negative ng/ml (<1000)
[2023-03-21 19:08] LABS: Barbiturates Screen,Urine Negative ng/ml (<200); Benzodiazepines Screen,Urine Negative ng/ml (<200)
[2023-03-21 19:11] LABS: Cannabinoid Screen,Urine Positive ng/ml (<50)
[2023-03-21 19:12] LABS: Cocaine Screen,Urine Negative ng/ml (<300)
[2023-03-21 19:13] LABS: Methadone Screen,Urine Negative ng/ml (<300); Opiate Screen,Urine Positive ng/ml (<300)
[2023-03-21 19:14] LABS: Phencyclidine Screen,Urine Negative ng/ml (<25)
== END ==
PROVIDERS: PCP Physician Assistant; Visit Provider Physician Assistant
DX: G89.4 Chronic pain syndrome (principal); Z79.899 Other long term (current) drug therapy
CPT/HCPCS: 80305

== ENCOUNTER 2023-06-16 09:52 | Emergency (ER) | payer MEDICARE, MEDICAID, SELFPAY ==
[2023-06-16 10:07] VITALS: BP 176/92; PULSE 90; RESP 22; TEMP 36.7; O2SAT 98; BMI 29.8
--- NOTE | 2023-06-16 10:19 | XR_ITS ---
FINAL REPORT CLINICAL HISTORY: pain in big toe FINDINGS: AP, oblique and lateral views of the left foot were obtained. There is no prior exam for comparison. There is a comminuted spiral fracture in the proximal phalanx of the great toe. Fracture line extends to the interphalangeal joint. There is soft tissue edema of the great toe. The joint spaces are preserved. IMPRESSION: Comminuted spiral fracture of the great toe. Reviewed, Interpreted and Dictated by Bella Weiss MD Transcribed by Ivania Weems Authenticated and [facility]
[2023-06-16 10:41] VITALS: BP 176/92; PULSE 90; RESP 22; TEMP 36.7; O2SAT 98
--- NOTE | 2023-06-16 10:41 | ED_ITS ---
Discharge Plan Disposition Patient Disposition: Home, Self-Care Condition: Good Prescriptions Prescriptions: No Action sucralfate [Carafate] 1 gram tablet 1 g PO TID Qty: 90 2RF cilostazol 100 mg tablet 100 mg PO BID Slow Fe 137 mg (45 mg iron) tablet extended release 137 mg PO .qd MDD 1 tablet Qty: 90 3RF Slow Release Iron 142 mg (45 mg iron) tablet extended release 142 mg PO gabapentin 600 mg tablet 600 mg PO QID Qty: 120 2RF nicotine 14 mg/24 hr patch 24 hour 1 patch transdermal DAILY Qty: 28 1RF hydroxyzine HCl 25 mg tablet 25 mg PO TID PRN (Reason: anxiety) Qty: 90 0RF Breo Ellipta 200-25 mcg/dose blister with device See Rx Instructions .ROUTE .COMPLEX Qty: 60 3RF Dose Instruction: INHALE 1 PUFF BY MOUTH ONCE A DAY, RINSE MOUTH WITH WATER AND SPIT OUT AFTER EACH USE (DO NOT SWALLOW) Rx Instructions: INHALE 1 PUFF BY MOUTH ONCE A DAY, RINSE MOUTH WITH WATER AND SPIT OUT AFTER EACH USE (DO NOT SWALLOW) ergocalciferol (vitamin D2) 1,250 mcg (50,000 unit) capsule 1,250 mcg PO WEEKLY Qty: 14 3RF cholecalciferol (vitamin D3) 50 mcg (2,000 unit) capsule 50 mcg PO DAILY Qty: 90 3RF lisinopril 10 mg tablet See Rx Instructions .ROUTE .COMPLEX Qty: 90 3RF Dose Instruction: TAKE ONE TABLET BY MOUTH ONCE A DAY Rx Instructions: TAKE ONE TABLET BY MOUTH ONCE A DAY albuterol sulfate [Ventolin HFA] 90 mcg/actuation HFA aerosol inhaler See Rx Instructions .ROUTE .COMPLEX Qty: 18 3RF Dose Instruction: INHALE 2 PUFFS BY MOUTH EVERY 4 TO 6 HOURS NEEDED FOR SHORTNESS OF BREATH OR WHEEZING Rx Instructions: INHALE 2 PUFFS BY MOUTH EVERY 4 TO 6 HOURS NEEDED FOR SHORTNESS OF BREATH OR WHEEZING prasugrel 10 mg tablet See Rx Instructions .ROUTE .COMPLEX Qty: 90 0RF Dose Instruction: TAKE ONE TABLET BY MOUTH ONCE A DAY Rx Instructions: TAKE ONE TABLET BY MOUTH ONCE A DAY tizanidine 4 mg tablet See Rx Instructions .ROUTE .COMPLEX Qty: 90 3RF Dose Instruction: TAKE ONE TABLET BY MOUTH ONCE A DAY Rx Instructions: TAKE ONE TABLET BY MOUTH ONCE A DAY aspirin 81 mg tablet,delayed release (DR/EC) See Rx Instructions .ROUTE .COMPLEX Qty: 90 1RF Dose Instruction: TAKE ONE TABLET BY MOUTH ONCE A DAY Rx Instructions: TAKE ONE TABLET BY MOUTH ONCE A DAY hydrocodone-acetaminophen 7.5-325 mg tablet 1 tab PO QID PRN (Reason: pain) Qty: 120 0RF atorvastatin 20 mg tablet See Rx Instructions .ROUTE .COMPLEX Qty: 90 3RF Dose Instruction: TAKE ONE TABLET BY MOUTH AT BEDTIME Rx Instructions: TAKE ONE TABLET BY MOUTH AT BEDTIME diltiazem HCl 240 mg capsule,extended release 24hr See Rx Instructions .ROUTE .COMPLEX Qty: 90 3RF Dose Instruction: TAKE ONE CAPSULE BY MOUTH ONCE A DAY Rx Instructions: TAKE ONE CAPSULE BY MOUTH ONCE A DAY ropinirole 2 mg tablet See Rx Instructions .ROUTE .COMPLEX Qty: 90 3RF Dose Instruction: TAKE ONE TABLET BY MOUTH 1 TO 3 HOURS BEFORE BEDTIME Rx Instructions: TAKE ONE TABLET BY MOUTH 1 TO 3 HOURS BEFORE BEDTIME amitriptyline 25 mg tablet See Rx Instructions .ROUTE .COMPLEX Qty: 90 3RF Dose Instruction: TAKE ONE TABLET BY MOUTH AT BEDTIME Rx Instructions: TAKE ONE TABLET BY MOUTH AT BEDTIME famotidine 40 mg tablet See Rx Instructions .ROUTE .COMPLEX Qty: 90 3RF Dose Instruction: TAKE ONE TABLET BY MOUTH ONCE A DAY Rx Instructions: TAKE ONE TABLET BY MOUTH ONCE A DAY pantoprazole 40 mg tablet,delayed release (DR/EC) See Rx Instructions .ROUTE .COMPLEX Qty: 90 3RF Dose Instruction: TAKE ONE TABLET BY MOUTH ONCE A DAY Rx Instructions: TAKE ONE TABLET BY MOUTH ONCE A DAY escitalopram oxalate 20 mg tablet See Rx Instructions .ROUTE .COMPLEX Qty: 90 3RF Dose Instruction: TAKE ONE TABLET BY MOUTH ONCE A DAY Rx Instructions: TAKE ONE TABLET BY MOUTH ONCE A DAY Referrals Follow up/Referrals: Coco Rome PA [Primary Care Provider] - See instructions Marisabel Huynh DPM [Staff Physician] - See instructions Activity Restrictions/Add. Instructions Additional Instructions/Restrictions: Rest the extremity, apply ice for 15 minutes as tolerated three or four times per day, Elevate the extremity as tolerated while you are resting. Take tylenol or ibuprofen for pain. Follow up with Dr. Huynh (podiatry).I put in a referral but you need to call her office and schedule an appointment. Make sure you follow up because fractures of the great toe can be kind of hard to heal. Use the hard post-op and the crutches for ambulation. Follow up with your regular doctor. GO TO THE ER FOR ANY WORSENING SYMPTOMS Clinical Impressions Clinical Impression: Closed fracture of right great toe Stand Alone Forms Stand Alone Forms: Work/School Release Instructions Patient Instructions: How to Use Crutches, Toe Fracture, DI for Toe Fracture Discharge ED Provider: Mychal Johnson [facility] General Stated complaint: AO, fell down stairs,Pain in L big toe Mode of Arrival: Ambulatory Source of Information: Patient Limitations: No Limitations Time Seen by Provider: 06/16/23 10:41 Description of Symptoms (Recalled from Triage Doc. by RN): PATIENT STATES SHE FELL TAKING HER DOGS OUT THIS MORNING AND INJURED HER LEFT GREAT TOE. SWELLING AND PAIN TO AREA HEENT Symptoms (Recalled from RN notes): No Resp Symptoms (Recalled from RN notes): No Skin Symptoms (Recalled from RN notes): No MS Symptoms (Recalled from RN notes): Yes Functional Status (Recalled from RN notes): WNL History of Present Illness Provider Complaint: She states that she was going down her steps at home this morning in the process of taking her dogs out when she twisted her left great toes back under her foot. Since then she has had pain and swelling at the base of her left great toe. She denies any other injury. She is able to walk on the foot, but she states that walking and bearing weight on the foot makes her pain worse. Related Data Home Medications Medication Instructions Recorded Confirmed cilostazol 100 mg tablet 100 mg PO BID 01/31/23 06/09/23 ferrous sulfate 142 mg (45 mg 142 mg PO 03/21/23 06/09/23 iron) tablet,extended release (Slow Release Iron) Previous Rx's Medication Instructions Recorded fluticasone furoate 200 See Rx Instructions .Route 11/05/21 mcg-vilanterol 25 mcg/dose .COMPLEX #60 ea inhalation powder (Breo Ellipta) sucralfate 1 gram tablet (Carafate) 1 g PO TID #90 tabs 06/02/22 cholecalciferol (vitamin D3) 50 50 mcg PO DAILY #90 caps 10/06/22 mcg (2,000 unit) capsule ergocalciferol (vitamin D2) 1,250 1,250 mcg PO WEEKLY #14 caps 10/06/22 mcg (50,000 unit) capsule lisinopril 10 mg tablet See Rx Instructions .Route 11/09/22 .COMPLEX #90 tabs albuterol sulfate 90 mcg/actuation See Rx Instructions .Route 12/01/22 aerosol inhaler (Ventolin HFA) .COMPLEX #18 grams prasugrel 10 mg tablet See Rx Instructions .Route 12/29/22 .COMPLEX #90 tabs tizanidine 4 mg tablet See Rx Instructions .Route 02/24/23 .COMPLEX #90 tabs ferrous sulfate 137 mg (45 mg 137 mg PO .qd Iron metabolism 03/03/23 iron) tablet,extended release disorder #90 tabs (Slow Fe) gabapentin 600 mg tablet 600 mg PO QID #120 tabs 03/21/23 aspirin 81 mg tablet,delayed See Rx Instructions .Route 05/05/23 release .COMPLEX #90 tabs hydroxyzine HCl 25 mg tablet 25 mg PO TID PRN anxiety #90 tabs 05/19/23 hydrocodone 7.5 mg-acetaminophen 1 tab PO QID PRN pain #120 tabs 05/23/23 325 mg tablet amitriptyline 25 mg tablet See Rx Instructions .Route 05/25/23 .COMPLEX #90 tabs atorvastatin 20 mg tablet See Rx Instructions .Route 05/25/23 .COMPLEX #90 tabs diltiazem HCl 240 mg See Rx Instructions .Route 05/25/23 capsule,extended release 24 hr .COMPLEX #90 caps escitalopram oxalate 20 mg tablet See Rx Instructions .Route 05/25/23 .COMPLEX #90 tabs famotidine 40 mg tablet See Rx Instructions .Route 05/25/23 .COMPLEX #90 tabs pantoprazole 40 mg tablet,delayed See Rx Instructions .Route 05/25/23 release .COMPLEX #90 tabs ropinirole 2 mg tablet See Rx Instructions .Route 05/25/23 .COMPLEX #90 tabs nicotine 14 mg/24 hr daily 1 patch transdermal DAILY #28 ea 06/09/23 transdermal patch Allergies Allergy/AdvReac Type Severity Reaction Status Date / Time clopidogrel Allergy Unknown I-ITCHING/ Verified 06/09/23 14:14 RASH Worker's Comp Is this a Worker's Comp case?: No [facility] Disclaimer: The information contained in this section may have been updated after the patient was seen, as this information can be updated by other users. Medical History (Updated 06/16/23 @ 11:18 by Mychal Johnson APRN) Bilateral leg cramps Depression Dystrophic nail GERD (gastroesophageal reflux disease) History of COPD ILD (interstitial lung disease) Insomnia Interstitial lung disease Leg pain Leg pain, bilateral Lumbar spondylolysis Lumbar spondylosis Lumbar spondylosis LAKESHA (obstructive sleep apnea) Restless leg syndrome Restless leg syndrome RLS (restless legs syndrome) Saddle anesthesia Smoking greater than 30 pack years Tobacco abuse Surgical History History of 2 sections History of cholecystectomy History of right coronary artery stent placement Family History Other Unknown family medical history Social History (Updated 06/09/23 @ 14:14 by Kim Farnsworth) Smoking Status: Current every day smoker tobacco type: cigarettes packs per day: 1 alcohol intake: never substance use type: denies use current occupational status: unemployed Travel in the last 8 weeks: None household members: spouse housing: house ROS Obtained: Yes All systems reviewed & no additional complaints except as documented Constitutional Constitutional: Denies chills and Denies fever(s) Eyes Eyes: Denies eye discharge ENT Ears, Nose, Mouth, and Throat: Denies dizziness, Denies otalgia and Denies sore throat Cardiovascular Cardiovascular: Denies chest pain Respiratory Respiratory: Denies shortness of breath, Denies chest congestion, Denies cough, Denies stridor and Denies wheezing Gastrointestinal Gastrointestingal: Denies nausea or vomiting Musculoskeletal Musculoskeletal: Reports system reviewed and no additional complaints, except as documented and Denies arthralgias Integumentary/Breasts Skin/Breast: Denies rash Neurologic Neurologic: Denies dizziness and Denies paresthesias Allergic/Immunologic Allergic/Immunologic: Denies wheezing Physical Exam General General appearance: alert and in no apparent distress Head Head exam: atraumatic, normocephalic and normal inspection Eye Eye exam: Present normal appearance, PERRL and EOMI ENT ENT exam: Present normal exam, normal oropharynx, mucous membranes moist, TM's normal bilaterally and normal external ear exam Neck Neck exam: Present normal inspection, full ROM and trachea midline; Absent meningismus or lymphadenopathy Chest Chest inspection: Present normal inspection and symmetric chest wall rise; Absent tenderness Respiratory Respiratory exam: Present normal lung sounds bilaterally; Absent respiratory distress Cardiovascular Cardiovascular exam: Present regular rate and normal rhythm; Absent JVD Abdominal Exam Abdominal exam: Present soft and normal bowel sounds; Absent distention, tenderness or guarding Extremities Exam Extremities exam: Present normal capillary refill; Absent calf tenderness Expanded Lower Extremity Exam Left: Hip/Pelvis exam: Present normal inspection and full ROM; Absent tenderness Upper leg exam: Present normal inspection and full ROM; Absent tenderness Knee exam: Present normal inspection, full ROM and knee extension intact; Absent tenderness Lower leg exam: Present normal inspection, full ROM and Achilles tendon intact; Absent tenderness or Homans' sign Ankle exam: Present normal inspection and full ROM; Absent tenderness, tenderness over talofibular lig or anterior draw sign Foot/toe exam: Present tenderness and swelling; Absent abrasion, laceration, ecchymosis, deformity, crepitus, dislocation, erythema, amputation, puncture wound, foreign body, calcaneal tenderness, tenderness at base of 5th metatarsal, nail avulsion or subungual hematoma Neurovascular/Tendon exam: Present normal capillary refill, normal 2-point discrimination and normal fine/light touch; Absent pulse deficit, motor deficit, sensory deficit, tendon deficit, extremity cold to touch or pallor Gait: observed and limited by pain Back Exam Back exam: Present normal inspection; Absent tenderness Neurological Exam Neurological exam: Present alert and oriented X3 Psychiatric Psychiatric exam: Present normal affect and normal mood Skin Skin exam: Present warm, dry, intact and normal color Lymphatic Lymphatic Findings: no adenopathy Medical Decision Making Medical Records Medical records reviewed: No I reviewed the patient's medical records. Leroy Inquiry Pt receiving controlled substance: No Vital Signs: 06/16/23 10:07 Temperature 98.1 F Temperature Source Oral Pulse Rate [Right Brachial] 90 Respiratory Rate 22 Blood Pressure [Right Arm] 176/92 H Blood Pressure Mean [Right Arm] 120 Blood Pressure Source [Right Arm] Automatic Cuff Blood Pressure Position [Right Arm] Sitting 02 Sat by Pulse Oximetry 98 Oxygen Delivery Method Room Air Orders (Tests/Meds): ORDERS Category Date Time Status Foot XR left minimum 3 views [XR foot LT min 3V] Stat Exams 06/16/23 10:19 Taken Radiology Data #1: Image(s): Foot/Toes Image Reviewed: Yes I reviewed the patient's radiology image and Yes I have reviewed radiologist's interpretation Preliminary Findings: Abnormal left great toe fracture Procedures Risk/Benefits of Procedure(s) Were Explained: Yes Orthopedic Splinting/Casting Injury #1: Side: left Lower Extremity Injury Location: foot and toe Lower Extremity Immobilizer: post-op shoe and Anjel wrap Other Orthopedic Equipment: crutches Post Cast/Splinting Neuro Status: intact and no change Post Cast/Splinting Vasc Status: intact and no change
== END 2023-06-16 11:24 | disposition home or self-care (01) ==
PROVIDERS: Emergency Provider Nurse Practitioner Family; PCP Physician Assistant
DX: S92.402A Displaced unspecified fracture of left great toe, initial encounter for closed fracture (principal); F17.210 Nicotine dependence, cigarettes, uncomplicated; K21.9 Gastro-esophageal reflux disease without esophagitis; J44.9 Chronic obstructive pulmonary disease, unspecified; J84.9 Interstitial pulmonary disease, unspecified; X50.1XXA Overexertion from prolonged static or awkward postures, initial encounter
CPT/HCPCS: 73630; 99212; 99214; G0463

== ENCOUNTER 2023-06-30 07:27 | Outpatient (CLI) | payer MEDICARE, MEDICAID, SELFPAY ==
--- NOTE | 2023-06-30 07:30 | XR_ITS ---
FINAL REPORT CLINICAL HISTORY: Toe Pain - F/U FX COMPARISON: 06/16/2023 FINDINGS: LEFT FOOT: Three views of the left foot were obtained. There is no acute fracture or dislocation. There is a nondisplaced fracture of the first proximal phalanx, with decreased distraction since the prior exam of May. The joint spaces are intact. There is no soft tissue abnormality. IMPRESSION: No acute bony abnormality. Nondisplaced fracture of the first proximal phalanx with decreased distraction since the prior exam of May. Reviewed, Interpreted and Dictated by Carroll Lima III, MD Transcribed by Caty Locke Authenticated and [facility]
== END 2023-06-30 23:59 ==
LOC: RAD 07:28
PROVIDERS: PCP Physician Assistant; Visit Provider Nurse Practitioner
DX: M79.672 Pain in left foot (principal)
CPT/HCPCS: 73630